=== PATIENT | male | born 1970 | race Two or more races ===

== ENCOUNTER 2022-05-22 01:21 | Emergency (ER) | payer MEDICAID ==
[~2022-05-22] VITALS: Ht 172.7 cm; Wt 72.7 kg
[~2022-05-22 01:21] MED LIST: AMOX-580 PO; CARV6.253 PO; DOXY-1 PO; FURO20TA4 PO; LISI5TAB22 PO; NICO-687 TD; SPIR25TA PO
[2022-05-22 01:32] VITALS: BP 130/70
[2022-05-22] MEDS ORDERED: TETanus/Pertussis (Acell)/Diphther VAC/PF (Tdap-Adult) 0.5ml syringe IMVAC ONE (03:20)
== END 2022-05-22 03:46 | disposition home or self-care (01) ==
LOC: ER 01:21
DX: S01.81XA Laceration without foreign body of other part of head, initial encounter (principal); I50.9 Heart failure, unspecified; F12.90 Cannabis use, unspecified, uncomplicated; Z59.00 Homelessness unspecified; W22.8XXA Striking against or struck by other objects, initial encounter; Y93.89 Activity, other specified; Y92.89 Other specified places as the place of occurrence of the external cause; Y99.8 Other external cause status
CPT/HCPCS: 90471; 90715; 99283